=== PATIENT | male | born 1950 | race Caucasian/White ===

== ENCOUNTER 2016-10-09 21:02 | Emergency (ER) | payer MEDICARE ==
[2016-10-09 22:24] LABS: HEMOGLOBIN 13.9 gm/dl (14.0-17.5); RED BLOOD COUNT 3.97 M/UL (4.20-5.50); WHITE BLOOD COUNT 15.6 K/UL (4.5-11.0)
[2016-10-09 22:43] LABS: BUN/CREATININE RATIO 22 (0-10)
== END 2016-10-10 04:20 | disposition home or self-care (01) ==
LOC: ER1 21:02
PROVIDERS: Emergency Medicine
DX: J18.9 Pneumonia, unspecified organism (principal); D72.829 Elevated white blood cell count, unspecified; Z90.49 Acquired absence of other specified parts of digestive tract; Z88.5 Allergy status to narcotic agent; R11.10 Vomiting, unspecified; R19.7 Diarrhea, unspecified
CPT/HCPCS: 36415; 71020; 71250; 80053; 81001; 83605; 84484; 85025; 85379; 87040; 87081; 87086; 87880; 93005; 94664; 96361; 96374; 99285; J1956

== ENCOUNTER → 2020-07-07 | Outpatient (CLI) | payer MEDICARE | LOC: KOH-I 14:22 | DX: J32.9 Chronic sinusitis, unspecified (principal); R05 Cough | CPT/HCPCS: 70220; 71046 ==

== ENCOUNTER → 2021-03-06 | Outpatient (CLI) | payer MEDICARE | LOC: KOH-I 13:00 | DX: M51.27 Other intervertebral disc displacement, lumbosacral region (principal) | CPT/HCPCS: 72148 ==